=== PATIENT | female | born 1960 | race Caucasian/White ===

== ENCOUNTER 2017-05-31 15:03 | Emergency (ER) | payer OTHER ==
[~2017-05-31] VITALS: Ht 167.6 cm; Wt 86.5 kg
[~2017-05-31 15:03] MED LIST: AMLO-110 PO
[2017-05-31 15:10] VITALS: TEMP 36.7; Ht 167.6 cm; Wt 86.5 kg
--- NOTE | 2017-05-31 16:20 | DIAGNOSTIC IMAGING REPORT ---
HEAD WITHOUT CONTRAST (CT) CT DOSE: 537.48 mGy.cm HISTORY: Trauma fall, head injury, visual disturbances, posterior head lac TECHNIQUE: Multiaxial CT images of the head were performed without the use of intravenous contrast. Comparison: None. Findings: The paranasal sinuses and mastoid air cells are clear. The calvarium and skull base are intact. The ventricles and sulci are within normal limits. There is no mass, hematoma, midline shift, or acute infarct. Impression: No acute intracranial abnormality. The above report was generated using voice recognition software. It may contain grammatical, syntax or spelling errors. Electronically signed by: Tate Florentino M.D. 05/31/2017 4:19 PM Dictated Date/Time: 05/31/2017 4:19 PM
[2017-05-31] MEDS ORDERED: ACETAMINOPHEN 500 MG TAB PO STA (16:27)
--- NOTE | 2017-05-31 16:45 | EMERGENCY ROOM VISIT NOTE ---
ED Visit Note First contact with patient: 15:21 CHIEF COMPLAINT: Scalp laceration HISTORY OF PRESENT ILLNESS: This 56-year-old female patient presents emergency department approximately one hour after striking the head she fell off of a boat backwards. The patient states the boat was parked in the driveway, and she was doing work on top of that. She states she lost her balance, and fell backwards off of the boat, landing on the driveway. She states she did land on her buttocks, however did fall backwards at that point and hit the posterior aspect of her head when she fell. There was no loss of consciousness, blurry vision, vomiting, confusion, slurred speech, or unusual behavior afterwards. The patient does report significant headache, dizziness, nausea. The patient rates the pain as pounding and achy and 5/10. The patient denies neck pain. The bleeding has stopped. The patient's tetanus shot is up to date. REVIEW OF SYSTEMS: A 6 system review of systems was completed with positives and pertinent negatives listed in the HPI. ALLERGIES: None MEDICATIONS: Imitrex PMH: Migraines SOCIAL HISTORY: The patient lives locally with her family. She denies drug, alcohol, tobacco use. PHYSICAL EXAM: Vital Signs: Reviewed Nurse's notes, vital signs stable. GENERAL : 56-year-old female, in no acute distress, well-developed, well-nourished. NEURO: Patient was alert and oriented to person place and time. Sensory and motor functions grossly intact. No focal neurologic deficits. Normal sensation to light and sharp touch. EYES: PERRLA. EOMI. Fundoscopic exam without hemorrhages or papilledema. EARS: No hemotympanum. No ball sign or mastoid tenderness. SKIN: There is a 1 cm Y-shaped laceration on the right posterior aspect of the scalp whose edges are gaping apart. There is no active bleeding. The wound is clean and there are no deep structures present. NECK: Supple, cervical spine nontender to palpation. EMERGENCY DEPARTMENT COURSE: I examined the patient. CT of Head was ordered and reviewed by myself and radiologist. CT was negative for fracture, hematoma, or acute abnormality. The patient was given a dose of 1000mg Tylenol PO for headache. Verbal consent was obtained to perform the procedure. The area was sterilely draped. The patient refused anesthetic when lidocaine offered. The wound was copiously irrigated under pressure with sterile saline. The wound was explored and there were no deep structures present. The wound was cleansed with betadine. The laceration was repaired using 3 magan with the wound edges being well approximated. The patient tolerated the procedure well. The bleeding stopped. The area was cleaned with sterile saline and dressed with bacitracin ointment. The patient was discharged home in good condition. RADIOLOGY: CT Head without contrast: Findings: The paranasal sinuses and mastoid air cells are clear. The calvarium and skull base are intact. The ventricles and sulci are within normal limits. There is no mass, hematoma, midline shift, or acute infarct. Impression: No acute intracranial abnormality. DIFFERENTIAL DIAGNOSIS: Intracranial hemorrhage, skull fracture, open fracture, head laceration, hematoma, and others. DIAGNOSIS: Scalp laceration DISCHARGE INSTRUCTIONS: Proper wound care is essential for adequate wound healing and infection prevention. You can shower and clean the wound with soap and water. Do scour over the wound, pat dry with a towel. Do not submerse the wound until the magan have been removed. You can use an antibiotic ointment with a dressing over the wound for the next 3-4 days. After this time you may leave the wound dry and open to the air. If crust develops over the wound you can use a Q-tip to apply a 1:1 peroxide:water solution to clean the wound. Look for signs of infection of the wound including: increased pain, swelling, foul discharge, streaking, or increased temperature. If any of these are noticed you should return to the Emergency Department for further assessment and treatment. As with any laceration you may have received nerve damage to the surrounding tissues. This damage may or may not be permanent. For pain control, you can use the following qipq-lmt-qieyhir medicines (if >12 yo): - Regular strength (325mg/tab) Tylenol (acetaminophen) 2 tabs every 4-6 hours as needed. Do not exceed 9 tablets in a 24 hour period. Avoid taking more than 3 grams (3000 mg) of Tylenol per day. This includes any other sources of acetaminophen you may take on a regular basis. - Regular strength (200 mg/tab) Advil (ibuprofen) 1-2 tabs every 4-6 hours as needed. Do not exceed a dose of 3200 mg per day. Return to the emergency department if your symptoms worsen despite treatment course outlined above. CT Scan of your head/brain demonstrated no acute bleeding or other abnormalities. This does not completely rule out the risk for future damage to the brain. You should relax in a quiet, dark place for the rest of the day. Avoid any possible triggers including: cigarette smoke, caffeine, nicotine, chocolate, wine, beer, loud noises or music, or bright lights. You may take your regular headache medication if no improvement with Tylenol given in the emergency department. You should schedule a follow-up appointment in 2-3 days with your Primary Care Provider or established Neurologist for further evaluation and treatment of your Headache. Return to the Emergency Department if your current symptoms worsen despite treatment course outlined above, or if you develop any of the following symptoms : intractable pain despite aforementioned treatment course, visual disturbances , loss of vision, unilateral weakness or facial drooping, slurring of speech, loss of coordination, or loss of consciousness. Current/Historical Medications No Active Prescriptions or Reported Meds Allergies Coded Allergies: No Known Allergies (Unverified , 10/18/15) Vital Signs Date Time Temp Pulse Resp B/P (MAP) Pulse Ox O2 Delivery O2 Flow Rate FiO2 05/31/17 16:50 80 16 145/83 97 05/31/17 15:10 36.7 99 20 159/91 96 Room Air Medications Administered Medications (Trade) Dose Ordered Sig/Chloé Route Start Time Stop Time Status Last Admin Dose Admin Acetaminophen (Tylenol Tab) 1,000 mg NOW STAT PO 05/31/17 16:27 05/31/17 16:28 DC 05/31/17 16:27 1,000 MG Departure Information Impression Primary Impression: Closed head injury Additional Impression: Scalp laceration Dispostion Home / Self-Care Condition GOOD Prescriptions No Active Prescriptions or Reported Meds Referrals Thompson Morris D.O. (PCP) Patient Instructions ED Laceration Scalp Stitch Or Stap, [facility] Additional Instructions You have received 3 magan on your scalp. These magan are NOT dissolvable and WILL need to be removed by a health care provider in 10 days. You can return to the Emergency Department or contact your Primary Care Provider to have these magan removed. Proper wound care is essential for adequate wound healing and infection prevention. You can shower and clean the wound with soap and water. Do scour over the wound, pat dry with a towel. Do not submerse the wound until the magan have been removed. You can use an antibiotic ointment with a dressing over the wound for the next 3-4 days. After this time you may leave the wound dry and open to the air. If crust develops over the wound you can use a Q-tip to apply a 1:1 peroxide:water solution to clean the wound. Look for signs of infection of the wound including: increased pain, swelling, foul discharge, streaking, or increased temperature. If any of these are noticed you should return to the Emergency Department for further assessment and treatment. As with any laceration you may have received nerve damage to the surrounding tissues. This damage may or may not be permanent. For pain control, you can use the following neir-npi-kqzljbd medicines (if >12 yo): - Regular strength (325mg/tab) Tylenol (acetaminophen) 2 tabs every 4-6 hours as needed. Do not exceed 9 tablets in a 24 hour period. Avoid taking more than 3 grams (3000 mg) of Tylenol per day. This includes any other sources of acetaminophen you may take on a regular basis. - Regular strength (200 mg/tab) Advil (ibuprofen) 1-2 tabs every 4-6 hours as needed. Do not exceed a dose of 3200 mg per day. Return to the emergency department if your symptoms worsen despite treatment course outlined above. CT Scan of your head/brain demonstrated no acute bleeding or other abnormalities. This does not completely rule out the risk for future damage to the brain. You should relax in a quiet, dark place for the rest of the day. Avoid any possible triggers including: cigarette smoke, caffeine, nicotine, chocolate, wine, beer, loud noises or music, or bright lights. You may take your regular headache medication if no improvement with Tylenol given in the emergency department. You should schedule a follow-up appointment in 2-3 days with your Primary Care Provider or established Neurologist for further evaluation and treatment of your Headache. Return to the Emergency Department if your current symptoms worsen despite treatment course outlined above, or if you develop any of the following symptoms : intractable pain despite aforementioned treatment course, visual disturbances , loss of vision, unilateral weakness or facial drooping, slurring of speech, loss of coordination, or loss of consciousness. Work Instructions Return To Work: 2 days Problem Qualifiers Primary Impression: Closed head injury Encounter type: initial encounter Qualified Codes: S09.90XA - Unspecified injury of head, initial encounter Additional Impression: Scalp laceration Encounter type: initial encounter Qualified Codes: S01.01XA - Laceration without foreign body of scalp, initial encounter
[2017-05-31 16:50] VITALS: BP 145/83; PULSE 80; O2SAT 97
== END 2017-05-31 16:52 | disposition home or self-care (01) ==
LOC: C.EDB 15:04 → C.EDD 16:52
DX: S01.01XA Laceration without foreign body of scalp, initial encounter (principal); W17.89XA Other fall from one level to another, initial encounter; Y92.014 Private driveway to single-family (private) house as the place of occurrence of the external cause; G43.909 Migraine, unspecified, not intractable, without status migrainosus